=== PATIENT | female | born 1960 | race Caucasian/White ===

== ENCOUNTER 2018-06-21 13:12 | Emergency (ER) | payer OTHER ==
[~2018-06-21] VITALS: Ht 167.6 cm; Wt 95.5 kg
[2018-06-21 13:50] VITALS: BP 157/67
[2018-06-21] MEDS ORDERED: ketorolac tromethamine 15mg/ml inj. IM ONE (15:25)
[2018-06-21] MEDS ORDERED: orphenadrine citrate 60mg/2ml inj. IM ONE (15:25)
[2018-06-21] MEDS ORDERED: IBUP-1985 PO (15:26)
[2018-06-21] MEDS ORDERED: HYDR-3965 PO (15:26)
== END 2018-06-21 15:46 | disposition home or self-care (01) ==
LOC: ER 13:12
DX: M24.812 Other specific joint derangements of left shoulder, not elsewhere classified (principal); Z79.899 Other long term (current) drug therapy
CPT/HCPCS: 96372; 99283; J1885; J2360